=== PATIENT | male | born 1960 | race Caucasian/White ===

== ENCOUNTER 2021-10-10 23:44 | Emergency (ER) | payer SELFPAY ==
[~2021-10-10] VITALS: Ht 175.3 cm; Wt 72.6 kg
[2021-10-11 00:07] VITALS: BP_SYST 152
[2021-10-11 01:51] LABS: ALANINE AMINOTRANSFERASE 22 U/L (12-78); ALBUMIN 3.4 g/dL (3.4-4.8); ANION GAP 9 (5-15); ASPARTATE AMINOTRANSFERASE 17 U/L (10-37); BASOPHILS # (AUTO) 0.1 K/uL (0.0-0.2); BASOPHILS % (AUTO) 1.3 % (0.0-2.0); CALCIUM 9.1 mg/dL (8.4-11.0); CREATININE 0.88 mg/dL (0.55-1.30); EOSINOPHILS # (AUTO) 0.2 K/uL (0.0-0.4); EOSINOPHILS % (AUTO) 1.4 % (0.0-4.0); HEMATOCRIT 40.7 % (36-54); HEMOGLOBIN 13.5 g/dL (14.0-18.0); LYMPHOCYTES # (AUTO) 1.8 K/uL (1.0-5.5); MEAN CORPUSCULAR HEMOGLOBIN 28 pg (27-31); MEAN CORPUSCULAR HGB CONC 33 % (32-36); MEAN CORPUSCULAR VOLUME 83 fL (79.0-98.0); MONOCYTES # (AUTO) 0.8 K/uL (0.0-1.0); MONOCYTES % (AUTO) 7.5 % (1.7-9.3); NEUTROPHILS # (AUTO) 8.2 K/uL (1.8-7.7); NEUTROPHILS % (AUTO) 73.8 % (40.0-70.0); POTASSIUM 4.7 mmol/L (3.5-5.1); RED CELL DISTRIBUTION WIDTH 12.6 % (9.0-15.0); TOTAL BILIRUBIN 0.3 mg/dL (0.0-1.0); UREA NITROGEN, BLOOD 13 mg/dL (8-21); WHITE BLOOD COUNT (AUTO) 11.1 K/uL (4.8-10.8)
[2021-10-11 01:52] LABS: SODIUM SERUM 133 mmol/L (136-145)
[2021-10-11 01:53] LABS: CHLORIDE 96 mmol/L (98-107); GLUCOSE 415 mg/dL (70-99)
[2021-10-11 01:54] LABS: GFR AFRICAN AMERICAN 114 mL/min (>90)
[2021-10-11 01:56] LABS: ACETONE, SERUM NEGATIVE (NEGATIVE); PLATELET COUNT (AUTO) 254 K/uL (130-430)
[2021-10-11] MEDS ORDERED: SULF1TAB48 PO (02:04)
== END 2021-10-11 02:06 | disposition left against medical advice (07) ==
LOC: SED 23:44
DX: L08.9 Local infection of the skin and subcutaneous tissue, unspecified (principal); R73.9 Hyperglycemia, unspecified
CPT/HCPCS: 36415; 80053; 82009; 82962; 85025; 99283